=== PATIENT | female | born 1955 | race Caucasian/White ===

== ENCOUNTER 2019-09-22 10:24 | Day surgery (SDC) | payer OTHER ==
--- NOTE | 2019-09-12 10:03 | HP ---
Admitting History and Physical - Primary Care Physician PCP: Mouna Hernández - Admission Chief Complaint: Right breast DCIS History of Present Illness: 64 year old postmenapausal female with family H/O breast cancer. Screening mammogram revealed 5 mm focus of linear calcifications right breast at 12:00 7 cm Fn. Right stereotactic core bx revealed low grade DCIS ER/MA +. Breast MRI showed localized right breast cancer. 08/21/2019. 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 and mutiple allergies), Other ( mutiple allergies) - Past Surgical History Additional Past Surgical History: ankle fx 2010 breast core bxs benign - Smoking History Smoking history: Former smoker Have you smoked in the past 12 months: No - Alcohol/Substance Use Hx Alcohol Use: Yes Home Medications - Allergies Allergies/Adverse Reactions: Allergies Allergy/AdvReac Type Severity Reaction Status Date / Time pollen extracts Allergy Verified 08/21/19 15:50 - Home Medications Home Medications (free text): albuterol sulfate inhaler Family Medical History Family Hx Cancer: Father (squamous cell mets) Other Family History: pat cousin salivary gland cancer. mat aunt uterine cancer 90. mat cousin breast ca 70. pat aunt breast ca 80 Physical Examination Constitutional: Yes: Well Nourished Breast(s): Yes: Other (no palpable masses or adenopathy post bx changes right breast) Problem List - Problems (1) Ductal carcinoma in situ (DCIS) of right breast Code(s): D05.11 - INTRADUCTAL CARCINOMA IN SITU OF RIGHT BREAST Assessment/Plan Right breast wide excision mammogram needle localization,
[2019-09-14 14:49] VITALS: BMI 24.5
[2019-09-22] MEDS ORDERED: BUPIVACAINE HCL 0.25% 125 MG/50 ML VIAL ONE (12:44)
[2019-09-22] MEDS ORDERED: LIDOCAINE HCL 1%, 10 MG/ML (20ML VIAL) ONE (12:44)
[2019-09-22] MEDS ORDERED: MIDAZOLAM HCL 2 MG/2 ML SINGLE DOSE VIAL ONE (13:01)
[2019-09-22] MEDS ORDERED: GUM MASTIC/STORAX/MSAL/ALCOHOL 1 DRP DROPSBTL MC ONE (13:46)
[2019-09-22] MEDS ORDERED: BUPIVACAINE HCL/PF 0.25% (2.5MG/ML) 10 ML VIAL IJ ONE (13:50)
[2019-09-22] MEDS ORDERED: oxyCODONE HCL 5 MG TABLET PO PRN ×2 (13:58)
[2019-09-22] MEDS ORDERED: PROMETHAZINE HCL 25 MG/1 ML VIAL IVPUSH PRN (13:58)
[2019-09-22] MEDS ORDERED: ONDANSETRON 4 MG/2 ML VIAL IVPUSH PRN ×2 (13:58→14:13)
[2019-09-22] MEDS ORDERED: DEXAMETHASONE SOD PHOSPHATE 4 MG/1 ML VIAL ONE (14:01)
[2019-09-22] MEDS ORDERED: DEXTROSE 5%-0.45% SALINE 1,000 ML IV SCH (14:15)
[2019-09-22] MEDS ORDERED: ALBUTEROL SO4 0.083% IH SOL 2.5 MG/3 ML VIAL.NEB. NEB ONE (14:35)
[2019-09-22] MEDS ORDERED: KETOROLAC TROMETHAMINE 30 MG/1 ML VIAL ONE (14:45)
[2019-09-22] MEDS ORDERED: ONDANSETRON 4 MG/2 ML VIAL ONE (14:52)
[2019-09-22 15:19] VITALS: TEMP 98.2
[2019-09-22 16:01] VITALS: BP 114/63; PULSE 48
--- NOTE | 2019-09-22 19:58 | OP ---
DATE OF OPERATION: 09/22/2019 PREOPERATIVE DIAGNOSIS: Right breast ductal carcinoma in situ. POSTOPERATIVE DIAGNOSIS: Right breast ductal carcinoma in situ. PROCEDURE: Right mammographically localized partial mastectomy. ANESTHESIA: intubated. ATTENDING SURGEON: Mouna Hernández M.D. NATIONAL ACCOUNT DIRECTOR: Abril Kincaid ESTIMATED BLOOD LOSS: Minimal. COMPLICATIONS: None. DESCRIPTION OF PROCEDURE: Patient was made aware of the risks and benefits of the procedure and consented. Patient placed in supine position after going through radiology, where a needle and wire were placed next to the indexed lesion. After general anesthesia was induced, the patient was intubated. The operative site prepped and draped in the usual sterile fashion. Curvilinear incision was made next to the wire and electrocautery skin flaps were made, and needle was withdrawn to the puncture site and wire through the wound. Tissues around the wire were then sharply excised short suture superior, long suture lateral. Specimen radiograph confirmed the presence of the indexed lesion, and the specimen was submitted to pathology. Additional segments were taken deep, anterior, medial, lateral, superior, and inferior with clips at the new margin. The wound was copiously irrigated with normal saline. Hemostasis maintained by electrocautery. Deep tissues were closed with [id number] sutures of 2-0 Vicryl. The skin was then closed with deep subdermal 3-0 Vicryl followed by running subcuticular 4-0 Monocryl. Steri-Strips, sterile dressing, and a compression bra were then applied, and the patient having tolerated procedure well was transferred to the recovery room in excellent condition. MOUNA HERNÁNDEZ M.D. CHAVEZ/[id number]
--- NOTE | 2019-09-26 15:28 | PATH ---
Surgical Pathology Report Patient Name: SHWETA BRAUN [facility]. Rec. #: [id number] /Age/Gender: 1955 (Age: 64) / F Account: [id number] Location: [facility] AMBULATORY Taken: 09/22/2019 Received: 09/22/2019 Reported: 09/26/2019 Physicians: Mouna Hernández M.D. Specimen(s) Received A: RIGHT BREAST WIDE EXCISION B: RIGHT BREAST ANTERIOR MARGIN C: RIGHT BREAST POSTERIOR MARGIN D: RIGHT BREAST LATERAL MARGIN E: RIGHT BREAST MEDIAL MARGIN F: RIGHT BREAST INFERIOR MARGIN G: RIGHT BREAST SUPERIOR MARGIN Clinical History Right breast DCIS Final Diagnosis A. BREAST, RIGHT, WIDE EXCISION: BENIGN BREAST TISSUE SHOWING PRIOR BIOPSY SITE CHANGES. NO RESIDUAL DUCTAL CARCINOMA IN SITU (DCIS) IS IDENTIFIED. B. BREAST, RIGHT, ANTERIOR MARGIN, EXCISION: BENIGN BREAST TISSUE. C. BREAST, RIGHT, POSTERIOR MARGIN, EXCISION: BENIGN BREAST TISSUE. D. BREAST, RIGHT, LATERAL MARGIN, EXCISION: BENIGN BREAST TISSUE. E. BREAST, RIGHT, MEDIAL MARGIN, EXCISION: BENIGN FIBROADIPOSE TISSUE. F. BREAST, RIGHT, INFERIOR MARGIN, EXCISION: BENIGN BREAST TISSUE. G. BREAST, RIGHT, SUPERIOR MARGIN, EXCISION: BENIGN BREAST TISSUE. Electronically Signed Rand Sanders M.D. Gross Description A. Received in formalin, labeled "right breast wide excision," is a 4.0 x 3.1 x 2.1 cm. joshi-yellow, irregular, portion of fibroadipose tissue. There is a needle localization wire separately received within the same container which appears to have detached from the specimen. There is a short suture marking the superior aspect and a long suture marking the lateral aspect, per the surgeon. There is no skin present. The specimen is inked as follows: superior and lateral blue; inferior green; medial yellow; anterior red; deep black. The specimen is serially sectioned from lateral to medial. Sectioning reveals multifocal white fibrous tissue. No definitive mass is identified. The specimen is entirely and sequentially submitted in 9 cassettes with the lateral margin in cassette 1 and the medial margin in cassette 9. Time to formalin fixation: 14 minutes Total formalin fixation time: Approximately 76 hours. B. Received in formalin labeled "right breast anterior margin," is a 2.6 x 1.8 x 0.5 cm portion of fibroadipose tissue with a clip marking the new margin, per the surgeon. The new margin is inked black and the specimen is serially sectioned. The specimen is entirely submitted in 2 cassettes. C. Received in formalin labeled "right breast posterior margin," is a 2.5 x 2.4 x 1.1 cm portion of fibroadipose tissue with a clip marking the new margin, per the surgeon. The new margin is inked black and the specimen is serially sectioned. The specimen is entirely submitted in 3 cassettes. D. Received in formalin labeled "right breast lateral margin," is a 2.2 x 1.6 x 0.7 cm portion of fibroadipose tissue with a clip marking the new margin, per the surgeon. The new margin is inked black and the specimen is serially sectioned. The specimen is entirely submitted in 2 cassettes. E. Received in formalin labeled "right breast medial margin," is a 1.1 x 1.0 x 0.3 cm portion of fibroadipose tissue with a clip marking the new margin, per the surgeon. The new margin is inked black and the specimen is serially sectioned. The specimen is entirely submitted in one cassette. F. Received in formalin labeled "right breast inferior margin," is a 2.2 x 1.8 x 0.7 cm portion of fibroadipose tissue with a clip marking the new margin, per the surgeon. The new margin is inked black and the specimen is serially sectioned. The specimen is entirely submitted in 3 cassettes. G. Received in formalin labeled "right breast superior margin," is a 2.1 x 1.4 x 0.5 cm portion of fibroadipose tissue with a clip marking the new margin, per the surgeon. The new margin is inked black and the specimen is serially sectioned. The specimen is entirely submitted in 2 cassettes. DL09/25/2019 saudi09/25/2019
== END 2019-09-22 15:50 | disposition home or self-care (01) ==
LOC: FASU 10:24
PROVIDERS: ATTEND Surgery Surgical Oncology
PROC: 0HBT0ZZ Excision of Right Breast, Open Approach (ICD-10-PCS; principal; 2019-09-22 13:25)
DX: D05.11 Intraductal carcinoma in situ of right breast (principal)
CPT/HCPCS: 19281; 76098-TC-FY; 88307-TC; 94760